=== PATIENT | male | born 1965 | race Caucasian/White ===

== ENCOUNTER 2016-12-17 10:44 | Emergency (ER) | payer BC ==
[~2016-12-17] VITALS: Ht 182.8 cm; Wt 119.3 kg
[~2016-12-17 10:44] MED LIST: ACCUPRIL5 MG PO; ASCRIPTIN ENTER81 MG PO; ASPIRIN 81 MG PO; FISH OIL 10001000 MG PO; GLIMEPIRIDE4 MG PO; Glucosamine500 MG PO; JANUMET 1000 MG1 TAB PO; MILK THISTLE500 M1 PO; NITROGLYCERIN0.4 MG SL
[2016-12-17] MEDS ORDERED: CEFADROXIL500 M1 PO (11:05)
== END 2016-12-17 12:13 | disposition home or self-care (01) ==
LOC: ED 10:44
DX: S61.011A Laceration without foreign body of right thumb without damage to nail, initial encounter (principal); Z98.890 Other specified postprocedural states; Z79.82 Long term (current) use of aspirin; Z79.899 Other long term (current) drug therapy; W26.0XXA Contact with knife, initial encounter; Y93.89 Activity, other specified; Y92.008 Other place in unspecified non-institutional (private) residence as the place of occurrence of the external cause; Y99.9 Unspecified external cause status

== ENCOUNTER → 2022-03-10 | Outpatient (CLI) | payer BC ==
[~2022-03-10] MED LIST changes: +CEFADROXIL500 M1 PO
== END | disposition home or self-care (01) ==
LOC: LAB 17:48
PROVIDERS: ATTEND Nurse Practitioner Primary Care
DX: R17 Unspecified jaundice (principal)

== ENCOUNTER 2022-10-02 09:45 | Inpatient (IN) | payer BC ==
[~2022-10-02] VITALS: Ht 177.8 cm; Wt 95.0 kg
[2022-10-02 09:59] VITALS: BP 163/94
[2022-10-02 10:17] LABS: BASO # 0.1 10*3/uL (0.0-0.1); BASO % 0.8 % (0.0-1.0); EOS # 0.7 10*3/uL (0.0-0.4); HEMATOCRIT 43.8 % (42.0-52.0); LYMPH # 1.6 10*3/uL (1.3-4.4); LYMPH % 24.2 % (27.0-41.0); MEAN CELL VOLUME 84.9 fl (80.0-94.0); MEAN CORPUSCULAR HGB 30.8 pg (27.0-31.0); MEAN CORPUSCULAR HGB CONC 36.3 g/dl (33.0-37.0); MONO # 0.4 10*3/uL (0.1-1.0); MONO % 5.8 % (3.0-9.0); NEUT # 3.8 10*3/uL (2.3-7.9); NEUT % 58.6 % (47.0-73.0); PLATELET COUNT AUTOMATED 121 10*3/uL (130-400); RED BLOOD COUNT 5.16 10*6/uL (4.50-5.90); RED CELL DISTRI WIDTH 12.7 % (0-14.5); WHITE BLOOD COUNT 6.5 10*3/uL (4.8-10.8)
[2022-10-02 10:20] LABS: ACT PARTIAL THROMBO TIME 25.6 SECONDS (20.0-32.1)
[2022-10-02] MEDS ORDERED: TRESIBA FL100 UNIT/1 SQ (10:35)
[2022-10-02] MEDS ORDERED: DEXCOM G61 EACH MC (10:36)
[2022-10-02] MEDS ORDERED: TRULICITY3 MG/0.5 M SQ (10:36)
[2022-10-02 10:37] LABS: ALKALINE PHOSPHATASE 101 U/L (46-116); BUN 8 mg/dl (9-23); CHLORIDE 106 mmol/L (98-107); LIPASE 65 U/L (12-53); POTASSIUM 3.6 mmol/L (3.4-5.1); SGPT/ALT 31 U/L (10-49); TOTAL PROTEIN 6.7 gm/dL (6.0-8.0)
[2022-10-02] MEDS ORDERED: METFORMIN HYDR750 MG PO (10:37)
[2022-10-02 11:30] VITALS: BP 158/68
[2022-10-02 14:15] VITALS: BP 154/68
[2022-10-02 16:00] VITALS: BP 138/67
[2022-10-02 20:00] VITALS: BP 148/74
[2022-10-03] VITALS: BP 135/71
[2022-10-03 06:09] LABS: BASO % 0.5 % (0.0-1.0); EOS # 0.7 10*3/uL (0.0-0.4); EOS % 10.5 % (1.0-4.0); HEMATOCRIT 43.2 % (42.0-52.0); LYMPH # 1.8 10*3/uL (1.3-4.4); LYMPH % 27.4 % (27.0-41.0); MEAN CELL VOLUME 84.5 fl (80.0-94.0); MEAN CORPUSCULAR HGB 29.9 pg (27.0-31.0); MEAN CORPUSCULAR HGB CONC 35.4 g/dl (33.0-37.0); MEAN PLATELET VOLUME 9.8 fl (9.6-12.3); MONO # 0.4 10*3/uL (0.1-1.0); NEUT # 3.5 10*3/uL (2.3-7.9); PLATELET COUNT AUTOMATED 123 10*3/uL (130-400); RED BLOOD COUNT 5.11 10*6/uL (4.50-5.90); RED CELL DISTRI WIDTH 12.8 % (0-14.5); WHITE BLOOD COUNT 6.4 10*3/uL (4.8-10.8)
[2022-10-03 06:40] LABS: ALKALINE PHOSPHATASE 82 U/L (46-116); BUN 9 mg/dl (9-23); CHLORIDE 107 mmol/L (98-107); CHOLESTEROL 132 mg/dL (<200); FREE T4 0.97 ng/dl (0.89-1.76); LDL CHOLESTEROL 70 mg/dL (9-159); POTASSIUM 3.8 mmol/L (3.4-5.1); SGPT/ALT 28 U/L (10-49); TOTAL PROTEIN 6.1 gm/dL (6.0-8.0); TRIGLYCERIDES 180 mg/dl (<150)
[2022-10-03 06:55] LABS: VITAMIN D, 25-HYDROXY 58.2 ng/mL (30-100)
[2022-10-03 08:00] VITALS: BP 138/70
[2022-10-03 14:00] VITALS: BP 141/79
[2022-10-03] MEDS ORDERED: METOPROLOL SUCC25 M2 PO (15:40)
[2022-10-03] MEDS ORDERED: ATORVASTATIN CA80 M1 PO (15:40)
[2022-10-03] MEDS ORDERED: ASPIRIN ADULT L81 M2 PO (15:40)
[2022-10-03] MEDS ORDERED: LISINOPRIL5 MG PO (15:40)
== END 2022-10-03 16:14 | disposition home or self-care (01) | DRG 206 ==
LOC: ED 09:45 → EDHOLD 12:29 → 4E 12:29
PROVIDERS: Emergency Medicine; Internal Medicine; ADMIT Internal Medicine; ATTEND Internal Medicine
PROC: 4A12XM4 Monitoring of Cardiac Stress, External Approach (ICD-10-PCS; principal; 2022-10-03)
PROC: 3E073KZ Introduction of Other Diagnostic Substance into Coronary Artery, Percutaneous Approach (ICD-10-PCS; 2022-10-03)
DX: M94.0 Chondrocostal junction syndrome [Tietze] (principal); Z82.49 Family history of ischemic heart disease and other diseases of the circulatory system; E78.5 Hyperlipidemia, unspecified; E66.01 Morbid (severe) obesity due to excess calories; I10 Essential (primary) hypertension; D69.6 Thrombocytopenia, unspecified; E11.65 Type 2 diabetes mellitus with hyperglycemia; E83.42 Hypomagnesemia; Z68.30 Body mass index [BMI] 30.0-30.9, adult

== ENCOUNTER 2025-02-14 01:22 | Emergency (ER) | payer BC ==
[~2025-02-14] VITALS: Ht 180.3 cm; Wt 106.6 kg
[~2025-02-14 01:22] MED LIST changes: +ASPIRIN ADULT L81 M2 PO; +ATORVASTATIN CA80 M1 PO; +DEXCOM G61 EACH MC; +LISINOPRIL5 MG PO; +METFORMIN HYDR750 MG PO; +METOPROLOL SUCC25 M2 PO; +TRESIBA FL100 UNIT/1 SQ; +TRULICITY3 MG/0.5 M SQ
[2025-02-14] MEDS ORDERED: FAMOTIDINE 50 ML IV ONE (01:40)
[2025-02-14 02:04] LABS: BASO # 0.0 10*3/uL (0.0-0.1); BASO % 0.5 % (0.0-1.0); EOS # 0.5 10*3/uL (0.0-0.4); EOS % 5.7 % (1.0-4.0); MEAN CELL VOLUME 86.5 fl (80.0-94.0); MEAN CORPUSCULAR HGB 29.5 pg (27.0-31.0); MEAN PLATELET VOLUME 9.6 fl (9.6-12.3); MONO # 0.5 10*3/uL (0.1-1.0); MONO % 6.4 % (3.0-9.0); NEUT # 5.9 10*3/uL (2.3-7.9); NEUT % 69.7 % (47.0-73.0); NUCLEATED RED BLOOD CELL 0.0 % (0.0-0.0); NUCLEATED RED BLOOD CELL 0.0 10*3/uL (0.0-0.0); PLATELET COUNT AUTOMATED 125 10*3/uL (130-400); RED CELL DISTRI WIDTH 13.1 % (0-14.5)
[2025-02-14 02:24] LABS: BUN 12 mg/dl (9-23)
[2025-02-14] MEDS ORDERED: INSULIN REGULAR, HUMAN 1 UNIT/0.01 ML IV ONE (02:50)
== END 2025-02-14 04:31 | disposition home or self-care (01) ==
LOC: ED 01:22
PROVIDERS: Internal Medicine
DX: K21.9 Gastro-esophageal reflux disease without esophagitis (principal); E11.9 Type 2 diabetes mellitus without complications; G47.30 Sleep apnea, unspecified; Z90.89 Acquired absence of other organs; Z98.890 Other specified postprocedural states